=== PATIENT | female | born 1990 | race Caucasian/White ===

== ENCOUNTER 2021-04-29 22:09 | Emergency (ER) | payer OTHER, SELFPAY ==
[2021-04-29 22:29] VITALS: BP 131/79; PULSE 96; RESP 15; TEMP 36.6; O2SAT 99; BMI 25.7
[2021-04-30 01:10] VITALS: BP 117/81; PULSE 74; O2SAT 96
--- NOTE | 2021-04-30 01:15 | ED.EAR ---
HPI - Ear Problem General Chief complaint: Ear Stated complaint: lt ear swelling Time Seen by Provider: 04/29/21 23:14 Source: patient Mode of arrival: Ambulatory Limitations: no limitations History of Present Illness HPI Narrative: 31-year-old female nonsmoker with bilateral hearing loss and use of hearing aids presents with a chief complaint of a painful bump inside her left ear that when pressed drains a purulence fluid. She was able to ?pop? this bump yesterday but now has increased pain and swelling of the remainder of her external ear. Her pain is worse with motion and improves with rest. She denies any ongoing drainage or change in her ability to hear. She denies systemic findings such as fever, chills nor nausea or vomiting MD Complaint: ear pain and ear discharge Location: left ear Duration: constant Severity: moderate Context: recent illness Discharge from ear: yes - purulent Treatment prior to arrival: other Related Data Previous Rx's Medication Instructions Recorded doxycycline hyclate 100 mg PO BID #20 tab 04/30/21 Allergies Allergy/AdvReac Type Severity Reaction Status Date / Time dioxybenzone [From Solaquin] Allergy Unknown Verified 04/29/21 22:29 hydroquinone [From Solaquin] Allergy Unknown Verified 04/29/21 22:29 oxybutynin Allergy Unknown Verified 04/29/21 22:29 padimate O [From Solaquin] Allergy Unknown Verified 04/29/21 22:29 Review of Systems Constitutional Constitutional: Denies chills, Denies fatigue, Denies fever(s), Denies frequent falls, Denies lethargy and Denies weakness Eyes Eyes: Denies change in vision, Denies eye discharge, Denies irritation and Denies loss of vision ENT Ears, Nose, Mouth, and Throat: Denies change in voice, Denies dizziness, Denies neck pain, Denies sore throat and Denies throat swelling Comments: External ear pain, swelling and redness Cardiovascular Cardiovascular: Denies chest pain, Denies irregular heart rhythm, Denies lightheadedness, Denies palpitations, Denies dyspnea, Denies dyspnea on exertion and Denies orthopnea Respiratory Respiratory: Denies cough, Denies dyspnea, Denies dyspnea on exertion and Denies wheezing Gastrointestinal Gastrointestinal: Denies abdominal pain, Denies change in bowel habits, Denies diarrhea, Denies nausea and Denies vomiting Musculoskeletal Musculoskeletal: Denies neck pain and Denies numbness Integumentary/Breasts Skin/Breast: Denies pruritus, Denies erythema, Denies rash and Denies wounds Neurologic Neurologic: Denies behavioral changes, Denies confusion, Denies dizziness, Denies frequent falls, Denies loss of vision, Denies numbness and Denies weakness Psychiatric Psychiatric: Denies anxiety, Denies behavioral changes, Denies confusion, Denies depression, Denies homicidal ideation and Denies suicidal ideation Endocrine Endocrine: Denies fatigue, Denies flushing and Denies palpitations Hematologic/Lymphatic Hematologic/Lymphatic: Denies easy bruising Allergic/Immunologic Allergic/Immunologic: Denies urticaria, Denies throat swelling and Denies wheezing Patient History Social History Smoking Status: Never smoker Smoking Status: Never smoker alcohol intake frequency: holidays/special occasions only Substance Use Type: does not use Exam Narrative Exam Narrative: GEN: AOx3 and in mild distress EYES: Pupils are equal, round, and reactive to light and accommodation. Extraoccular muscles are intact bilaterally. There is no subconjunctival hemorrhage or exudate. EARS: Skin small scabbed lesion inside left external auditory canal with minimal surrounding erythema and tenderness. There is no significant drainage, tympanic membrane is intact, clear with normal cone of light. CHEST: Lungs are clear to auscultation bilaterally and free of wheezes, rales, or rhonchi. Heart rate is regular rhythm, there are no murmurs, clicks, rubs, or gallops. There is no chest wall tenderness. ABD: Abdomen is soft and nontender. There is no guarding or rebound. Bowel sounds are normal in all 4 quadrants. There is no mass or organomegaly. EXT: Full painless ROM of all extremities with no loss of sensation or strength. SKIN: Warm, pink, and dry. No erythema or rash Initial Vital Signs Initial Vital Signs: Vital Signs Temperature 97.9 F 04/29/21 22:29 Pulse Rate 96 H 04/29/21 22:29 Respiratory Rate 15 04/29/21 22:29 Blood Pressure 131/79 04/29/21 22:29 Pulse Oximetry 99 04/29/21 22:29 Course Orders Ordered: Discontinued Medications Doxycycline Hyclate (Doxycycline Hyclate 100 Mg Tablet) 100 mg PO NOW ONE Stop: 04/30/21 01:21 Last Admin: 04/30/21 01:26 Dose: 100 mg Documented by: [email or web address] Vital Signs Vital signs: Vital Signs - 8 hr 04/30/21 01:10 Pulse Rate 74 Blood Pressure 117/81 Pulse Oximetry 96 Discharge Plan Departure Patient Disposition: Home Clinical Impression: Cellulitis of auricle of left ear, Right ear pain Instructions: DI for Cellulitis -- Adult Activity Restrictions/Additional Instructions: *You have been diagnosed with [ Left ear cellulitis] *What to do: *Please continue to take your regular medications as directed. [x ] New medication prescriptions sent to your pharmacy: [[facility] ] [ ] New medication written as a paper prescription [ ] No new medications given *Please follow up with your primary care provider in 2-3 days, call for an appointment. Let them know you were seen in the Emergency Department and that we ask that you be seen in follow up. We will electronically transmit a record of today's note if your PCP is in our system *If you do not have a primary care provider please contact the [facility] Resource line at [phone]. They will ask some questions about your medical history and help get you set up with a doctor in the community. *Return to Emergency Department if you should have any new, worsening or concerning symptoms, such as [fever greater than 101 F, shaking chills, worsening pain, persistent vomiting or other bothersome symptoms] Prescriptions: New doxycycline hyclate 100 mg tablet 100 mg PO BID Qty: 20 RF: 0 Referrals: Miscellaneous,Doctor, [Primary Care Provider] -
[2021-04-30] MEDS: DOXYCYCLINE HYCLATE 100 MG TABLET PO (01:26)
== END 2021-04-30 01:41 | disposition home or self-care (01) ==
PROVIDERS: Emergency Provider Emergency Medicine
DX: H60.12 Cellulitis of left external ear (principal); H92.01 Otalgia, right ear
CPT/HCPCS: 99283

== ENCOUNTER → 2021-07-15 12:37 | Outpatient (CLI) | payer OTHER, SELFPAY | PROVIDERS: Visit Provider Nurse Practitioner | DX: N34.3 Urethral syndrome, unspecified (principal) | CPT/HCPCS: 87077; 87086; 87186 ==

== ENCOUNTER → 2023-05-11 10:29 | Outpatient (CLI) | payer OTHER, SELFPAY | PROVIDERS: PCP Family Medicine; Visit Provider Nurse Practitioner Family | DX: J02.9 Acute pharyngitis, unspecified (principal) | CPT/HCPCS: 87070; 87077 ==